=== PATIENT | female | born 1990 | race American Indian/Alaskan Native ===

== ENCOUNTER 2016-06-22 04:26 | Inpatient (IN) | payer SELFPAY ==
[2016-06-22] MEDS ORDERED: LACTATED RINGERS 1,000 ML ONE (04:55)
[2016-06-22] MEDS ORDERED: POLYCILLIN/NS 2 GM/100 ML 2 GM/100 ML BAG IV ONE ×2 (04:55→05:16)
[2016-06-22] MEDS ORDERED: XYLOCAINE 2% INFILTRATI ONE (05:29)
[2016-06-22] MEDS ORDERED: MINERAL OIL PO PRN (05:29)
[2016-06-22] MEDS ORDERED: ZOFRAN IV PRN ×2 (05:29→11:00)
[2016-06-22] MEDS ORDERED: ePHEDrine SULFATE IV PRN (05:29)
[2016-06-22] MEDS ORDERED: BRETHINE IVP PRN (05:29)
[2016-06-22] MEDS ORDERED: BRETHINE SUB-Q PRN (05:29)
--- NOTE | 2016-06-22 05:37 | History and Physical Report ---
History of Present Illness Date of examination: 06/22/16 (ER DROP IN) Date of admission: 06/22/16 04:52 Chief complaint: contractions History of present illness: Pt presents c/o contractions in active labor. Pt has not had any care but gives edc of 07/02/16 via sono done in ER in [place]. She denies any LOF and reports good movement. 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 Family/Genetic History: denies: none Social history: no significant social history, single - Obstetrical History Expected Date of Delivery: 07/02/16 Actual Gestation: 38 Week(s) 4 Day(s) : 2 Para: 1 Number of Living Children: 1 Medications and Allergies Allergies Allergy/AdvReac Type Severity Reaction Status Date / Time No Known Allergies Allergy Verified 06/22/16 04:32 Active Meds: Active Medications Ampicillin Sodium (Polycillin/Ns 2 Gm/100 Ml) 2 gm in 100 mls @ 100 mls/hr IV ONCE ONE Stop: 06/22/16 06:15 Lactated Ringer's (Lactated Ringers) 1,000 mls @ 125 mls/hr IV DIRECT ENMANUEL Oxytocin/Sodium Chloride (Pitocin/Ns 20 Unit/1000ml Drip) 20 units in 1,000 mls @ 125 mls/hr IV DIRECT ENMANUEL Review of Systems All systems: negative - Vital Signs Vital signs: Vital Signs Pulse Pulse Ox 90 98 06/22/16 04:52 06/22/16 04:52 Temp Pulse Resp BP Pulse Ox 96.5 F L 85 18 120/59 96 06/22/16 05:07 06/22/16 05:22 06/22/16 05:07 06/22/16 05:07 06/22/16 05:22 - Physical Exam Abdomen: Positive: normal appearance, soft. Negative: distention, tenderness, guarding Vulva: both: normal Deep Tendon Reflex Grade: Normal +2 - Obstetrical FHR: category 1 Cervical Dilatation: 8.5 Cervical Effacement Percentage: 100 station: -1 Uterine Contraction Pattern: Regular Results All other labs normal. Assessment and Plan - Patient Problems (1) 38 weeks gestation of Current Visit: Yes Status: Acute (2) Active labor at term Current Visit: Yes Status: Acute Plan to address problem: -unknown GBS so antibx being given -anticipate
[2016-06-22] MEDS ORDERED: SUBLIMAZE ONE (05:39)
[2016-06-22] MEDS: SUBLIMAZE IV ONE ×2 (05:44→07:19)
[2016-06-22] MEDS ORDERED: NARCAN 2 MG/2 ML ONE (05:47)
[2016-06-22 05:49] LABS: Urine Drugs of Abuse Note Disclamer
[2016-06-22 05:53] LABS: Hematocrit 36.6 % (30.3-42.9); Mean Corpuscular HGB Conc 33 % (30-34); Mean Corpuscular Hemoglobin 30 pg (28-32); Mean Corpuscular Volume 93 fl (79-97); Platelet Count 257 K/mm3 (140-440); Red Blood Count 3.95 M/mm3 (3.65-5.03); Red Cell Distribution Width 14.9 % (13.2-15.2); White Blood Count 14.4 K/mm3 (4.5-11.0)
[2016-06-22] MEDS ORDERED: PITOCin/NS 20 UNIT/1000ML DRIP 20 UNITS/1,000 ML BAG IV SCH ×2 (06:00)
[2016-06-22] MEDS ORDERED: PITOCin/NS 30 UNIT/500ML 30 UNITS/500 ML BAG IV SCH (06:00)
[2016-06-22] MEDS ORDERED: LACTATED RINGERS 1,000 ML IV SCH ×2 (06:00)
[2016-06-22 06:21] LABS: HIV-1 Antigen p24 Non React (Non React); HIVR-1/2 Ab Non React (Non React)
--- NOTE | 2016-06-22 07:33 | Procedure Note ---
OB Delivery Note - Delivery Date of Delivery: 06/22/16 Surgeon: ANNETTA ANDREWS Estimated blood loss: 200cc - Vaginal Delivery presentation: vertex Delivery position: OA Intrapartum events: other(please specify) (2+mec) Delivery induction: none Delivery augmentation: rupture of membranes Delivery monitor: external FHT, external uterine Route of delivery: Delivery placenta: spontaneous Delivery cord: 3 umbilical vessels Episiotomy: none Delivery laceration: none Delivery comments: Delivery as above without complications. Ant shoulder and rest of delivered without difficulty. Infant was given to waiting nursing staff after cord was clamped x2 and cut x1 by foc. There was not nuchal cord present. Cord blood was collected. Placenta delivered spontaneously intact. There was no lacerations noted at time of delivery. EBL 200ml. Mother and stable in LDR. - Infant A at 1 minute: 8 at 5 minutes: 9 Gender: Female (6lbs 7oz)
[2016-06-22 08:19] LABS: Basophils % (Manual) 0 % (0.0-1.8); Blastocytes % (Manual) 0 %
[2016-06-22 08:21] LABS: Anisocytosis 1+; Diff Status Complete; Platelet Estimate Cons
[2016-06-22 08:22] LABS: Large Platelets Few
[2016-06-22] MEDS ORDERED: DERMOPLAST TP PRN (11:00)
[2016-06-22] MEDS ORDERED: DULCOLAX PR PRN (11:00)
[2016-06-22] MEDS ORDERED: TUCKS PAD TP PRN (11:00)
[2016-06-22] MEDS ORDERED: TYLENOL PO PRN (11:00)
[2016-06-22] MEDS: MOTRIN PO SCH ×2 (11:06→19:25)
[2016-06-22] MEDS: NORCO 5/325 PO PRN ×2 (11:07→20:57)
[2016-06-22] MEDS ORDERED: PHENERGAN PR PRN (11:30)
[2016-06-22] MEDS ORDERED: BENADRYL PO PRN (11:30)
[2016-06-22] MEDS ORDERED: PHENERGAN PO PRN (11:30)
[2016-06-22] MEDS: LANSINOH TP PRN (11:59)
[2016-06-22] MEDS ORDERED: SODIUM CHLORIDE FLUSH SYRINGE 10 ML IV PRN (12:00)
[2016-06-22] MEDS ORDERED: MILK OF MAGNESIA PO PRN (22:00)
[2016-06-22 23:11] LABS: Hematocrit 33.1 % (30.3-42.9); Hemoglobin 10.7 gm/dl (10.1-14.3)
[2016-06-23] MEDS: MOTRIN PO SCH ×3 (00:13→23:50)
[2016-06-23] MEDS ORDERED: BOOSTRIX IM ONE (06:00)
--- NOTE | 2016-06-23 11:46 | Progress Note ---
Assessment and Plan - Patient Problems (1) 38 weeks gestation of Current Visit: No Status: Resolved (2) Active labor at term Current Visit: No Status: Resolved (3) (normal spontaneous vaginal delivery) Current Visit: Yes Status: Acute Plan to address problem: -routine pp care -d/c home in am Subjective - Subjective Date of service: 06/23/16 Principal diagnosis: PPD #1 s/p Interval history: Pt doing well and desires d/c home in the am Patient reports: appetite normal, voiding normally, pain well controlled, no dizzy ambulation : doing well, nursing well Objective - Vital Signs Latest vital signs: Vital Signs Temp Pulse Pulse Resp BP BP 06/23/16 08:39 98.8 F 86 20 98/60 06/23/16 00:25 98 F 62 20 128/69 06/22/16 21:14 98.8 F 59 L 20 120/62 06/22/16 16:47 98.7 F 74 18 102/50 06/22/16 12:40 99 F 62 18 116/61 Intake and Output 06/22/16 06/23/16 06/23/16 22:59 06:59 14:59 Intake Total 360 480 Balance 360 480 Intake: Oral 360 480 Other: Total, Intake Amount 360 480 # Voids Void 1 1 - Exam Lungs: Present: Normal air movement Abdomen: Present: normal appearance, soft, normal bowel sounds. Absent: distention, tenderness, guarding Uterus: Present: normal, firm, fundal height below umbilicus. Absent: bogginess , tenderness Extremities: Present: normal. Absent: tenderness, edema
[2016-06-23] MEDS: LANSINOH TP PRN (19:57)
[2016-06-24] MEDS: MOTRIN PO SCH ×3 (05:47→12:28)
--- NOTE | 2016-06-24 10:41 | Discharge Summary ---
Providers - Providers Date of Admission: 06/22/16 04:52 Date of discharge: 06/24/16 Attending physician: ANNETTA ANDREWS Primary care physician: COURT SUPERVISOR Hospitalization Reason for admission: active labor Delivery: Episiotomy: none Laceration: none Other procedures: none complications: none Discharge diagnosis: IUP at term delivered baby: female Hospital course: Pt s/p vaginal delivery that was not complicated. Pt had routine pp care. D/c home today. Condition at discharge: Good Disposition: DISCHARGED TO HOME OR SELFCARE - Discharge Diagnoses (1) (normal spontaneous vaginal delivery) Status: Acute Plan - Provider Discharge Summary Additional instructions: [] Smoking cessation referral if applicable(refer to patient education folder for contact #) [] Refer to [facility] Booklet Call your doctor immediately for: * Fever > 100.5 * Heavy vaginal bleeding ( >1 pad per hour) * Severe persistent headache * Shortness of breath * Reddened, hot, painful area to leg or breast * Drainage or odor from incision. * Keep incision clean and dry at all times and follow doctor's instructions regarding bathing/showering - Follow up plan Follow up: PRIMARY CARE, [Primary Care Provider] - 6 Weeks Forms: [facility] Discharge Summary
[2016-06-24 11:58] VITALS: BP 122/70
== END 2016-06-24 13:21 | disposition home or self-care (01) | DRG 775 ==
LOC: TRG 04:26 → LD 04:52 → OB 09:41
PROVIDERS: ADMIT Obstetrics & Gynecology; ATTEND Obstetrics & Gynecology
PROC: 10E0XZZ Delivery of Products of Conception, External Approach (ICD-10-PCS; principal; 2016-06-22)
DX: O75.9 Complication of labor and delivery, unspecified (principal); O09.33 Supervision of pregnancy with insufficient antenatal care, third trimester; Z3A.38 38 weeks gestation of pregnancy; Z37.0 Single live birth
CPT/HCPCS: 36415; 80307; 85007; 85014; 85018; 85025; 85660; 86592; 86706; 86762; 86803; 86850; 86900; 86901; 87806; 88307; A6250; J0290; J2310; J2590; J3010; J7120

== ENCOUNTER 2019-03-28 11:00 | Emergency (ER) | payer SELFPAY ==
[2019-03-28 11:13] VITALS: BP 114/56
== END 2019-03-28 11:20 | disposition left against medical advice (07) ==
LOC: ED 11:00
DX: R07.89 Other chest pain (principal); Z53.21 Procedure and treatment not carried out due to patient leaving prior to being seen by health care provider
CPT/HCPCS: 93005; 93010

== ENCOUNTER 2020-07-29 10:51 | Emergency (ER) | payer OTHER ==
--- NOTE | 2020-07-29 12:32 | Event Note ---
ED Screening Note Date of service: 07/29/20 Time: 12:32 ED Screening Note: Patient complains of abdominal pain, back pain, and constipation x2 weeks Patient states she is still passing gas States she believes she had a vaginal prolapse from straining Patient states pain is severe Denies vaginal bleeding or discharge This initial assessment/diagnostic orders/clinical plan/treatment(s) is/are subject to change based on patients health status, clinical progression and re- assessment by fellow clinical providers in the ED. Further treatment and workup at subsequent clinical providers discretion. Patient/guardian urged not to elope from the ED as their condition may be serious if not clinically assessed and managed. Initial orders include: Labs Ultrasound
[2020-07-29 13:16] LABS: Basophils % (Auto) 0.3 % (0.0-1.8); Eosinophils # (Auto) 0.1 K/mm3 (0.0-0.4); Eosinophils % (Auto) 0.5 % (0.0-4.3); Hematocrit 37.5 % (30.3-42.9); Hemoglobin 12.4 gm/dl (10.1-14.3); Lymphocytes # (Auto) 2.6 K/mm3 (1.2-5.4); Mean Corpuscular HGB Conc 33 % (30-34); Mean Corpuscular Volume 96 fl (79-97); Monocytes # (Auto) 0.7 K/mm3 (0.0-0.8); Monocytes % (Auto) 5.2 % (0.0-7.3); Platelet Count 242 K/mm3 (140-440); Red Cell Distribution Width 12.8 % (13.2-15.2)
[2020-07-29 13:37] LABS: Alanine Aminotransferase 9 units/L (7-56); Albumin 3.8 g/dL (3.9-5); Blood Urea Nitrogen 8 mg/dL (7-17); Calcium 8.9 mg/dL (8.4-10.2); Hemolysis Index 17
[2020-07-29 13:41] LABS: BUN/Creatinine Ratio 20
--- NOTE | 2020-07-29 14:23 | Ultrasound Report ---
ULTRASOUND OBSTETRIC LIMITED INDICATION / CLINICAL INFORMATION: Constipation and pain. Clinical Gestational Age (GA) in weeks, days: 16 weeks 5 days TECHNIQUE: Transabdominal. COMPARISON: None available. FINDINGS: Single live intrauterine in transverse head to right position. Amniotic fluid volume is within normal limits. Posterior fundal placenta is free of the os. MEASUREMENTS: - Biparietal Diameter = 3.6 cm = 17 weeks 1 day - Head Circumference = 13.7 cm = 17 weeks 1 day - Abdominal Circumference = 10.2 cm = 16 weeks 1 day - Femur Length = 2.4 cm = 17 weeks 2 days - Estimated Weight (in grams, if calculated): 169 - Heart Rate (beats per minute): 159 IMPRESSION: 1. Single live intrauterine with ultrasound age of 17 weeks 0 days. 2. No significant abnormality identified. Signer Name: Krishna Krishnamurthy MD Signed: 07/29/2020 2:19 PM Workstation Name: [id number]
[2020-07-29 17:29] LABS: Bilirubin,Urine NEG (Negative); Blood,Urine NEG (Negative); Color,Urine Yellow (Yellow); Mucus,Urine 3+ /HPF; Protein,Urine <15 mg/dL mg/dL (Negative); Urobilinogen,Urine < 2.0 mg/dL (<2.0)
--- NOTE | 2020-07-29 17:36 | Emergency Department Report ---
ED General Adult HPI - General Chief complaint: Abdominal Pain Stated complaint: 4 MONTHS SEVER BOWEL/VAGINAL PAIN Time Seen by Provider: 07/29/20 12:30 Source: patient Mode of arrival: Ambulatory Limitations: No Limitations - History of Present Illness Initial comments: Patient is a 29-year-old female presents emergency room with complaints of constipation that began 2 weeks ago. She states that she is currently . She states that she has been taking MiraLAX without much relief. She has not tried any other treatment. She states that she was supposed to have an appointment with her BENCH SCIENTIST today but came here instead. She states that today she was straining to have a bowel movement and feels like something popped out of her vaginal canal and she pushed it back in. She has not seen any bulging since then. She is still able to pass gas. She is able to tolerate p.o. intake. She denies any vomiting. She has not tried any suppositories or enemas. she reports it is causing abdominal discomfort. She denies any back pain, gush of fluids, abnormal vaginal discharge, dysuria, vaginal bleeding, rectal bleeding. She states that her [facility]ENCH SCIENTIST is the [facility]. No past medical history. No allergies to medications. - Related Data Home Medications Medication Instructions Recorded Confirmed Last Taken Vit No.130/Iron/Folic 1 each PO QDAY 06/22/16 06/22/16 Unknown [ Tablet] Previous Rx's Medication Instructions Recorded Last Taken Type Ondansetron [Zofran Odt] 4 mg PO Q8HR #3 tab.rapdis 03/28/18 Unknown Rx Glycerin Adult 2 gm 2 gm MS ONCE PRN #10 supp.rect 07/29/20 Unknown Rx Sodium Phosphate,[place]-Dibasic 133 ml RC ONCE #1 enema 07/29/20 Unknown Rx [Enema Ready To Use] Allergies Allergy/AdvReac Type Severity Reaction Status Date / Time No Known Allergies Allergy Verified 06/22/16 04:32 ED Review of Systems ROS: Stated complaint: 4 MONTHS SEVER BOWEL/VAGINAL PAIN Other details as noted in HPI Comment: All other systems reviewed and negative ED Past Medical Hx - Past Medical History Hx Hypertension: No Hx Congestive Heart Failure: No Hx Diabetes: No Hx Deep Vein Thrombosis: No Hx Renal Disease: No Hx Sickle Cell Disease: No Hx Seizures: No Hx Asthma: Yes (2yrs ago) Hx COPD: No Hx HIV: No - Social History Smoking Status: Current Every Day Smoker Substance Use Type: None - Medications Home Medications: Home Medications Medication Instructions Recorded Confirmed Last Taken Type Vit No.130/Iron/Folic 1 each PO QDAY 06/22/16 06/22/16 Unknown History [ Tablet] Ondansetron [Zofran Odt] 4 mg PO Q8HR #3 tab.rapdis 03/28/18 Unknown Rx Glycerin Adult 2 gm 2 gm MS ONCE PRN #10 supp.rect 07/29/20 Unknown Rx Sodium Phosphate,[place]-Dibasic 133 ml RC ONCE #1 enema 07/29/20 Unknown Rx [Enema Ready To Use] ED Physical Exam - General Limitations: No Limitations General appearance: alert, in no apparent distress - Head Head exam: Present: atraumatic, normocephalic - Eye Eye exam: Present: normal appearance - ENT ENT exam: Present: mucous membranes moist - Respiratory Respiratory exam: Present: normal lung sounds bilaterally. Absent: respiratory distress, wheezes, rales, rhonchi, stridor, chest wall tenderness, accessory muscle use, decreased breath sounds, prolonged expiratory - Cardiovascular Cardiovascular Exam: Present: regular rate, normal rhythm, normal heart sounds. Absent: systolic murmur, diastolic murmur, rubs, gallop - GI/Abdominal GI/Abdominal exam: Present: soft, normal bowel sounds. Absent: distended, tenderness, guarding, rebound, rigid - Speculum exam: Present: other (manager inventory management: Vanessa Kline PA-C, normal vaginal mucosa, no abnormal vaginal discharge, no lesions or blisters, no CMT or adnexal ttp or masses, no signs of bulging or prolapse, no vaginal bleeding, cervical os is closed) - Neurological Exam Neurological exam: Present: alert, oriented X3 - Psychiatric Psychiatric exam: Present: normal affect, normal mood - Skin Skin exam: Present: warm, dry, intact ED Course Vital Signs 07/29/20 07/29/20 12:26 18:23 Temperature 98.6 F Pulse Rate 104 H 84 Respiratory 14 18 Rate Blood Pressure 120/74 Blood Pressure 133/90 [Right] O2 Sat by Pulse 99 99 Oximetry ED Medical Decision Making - Lab Data Result diagrams: 07/29/20 12:48 07/29/20 12:48 Labs 07/29/20 07/29/20 07/29/20 12:48 12:48 12:48 WBC 13.7 H RBC 3.90 Hgb 12.4 Hct 37.5 MCV 96 MCH 32 MCHC 33 RDW 12.8 L Plt Count 242 Lymph % (Auto) 19.0 [place] % (Auto) 5.2 Eos % (Auto) 0.5 Baso % (Auto) 0.3 Lymph # (Auto) 2.6 [place] # (Auto) 0.7 Eos # (Auto) 0.1 Baso # (Auto) 0.0 Seg Neutrophils % 75.0 H Seg Neutrophils # 10.3 H Sodium 135 L Potassium 4.2 Chloride 100.9 Carbon Dioxide 22 Anion Gap 16 BUN 8 Creatinine 0.4 L Estimated GFR > 60 BUN/Creatinine Ratio 20 Glucose 81 Calcium 8.9 Total Bilirubin 0.30 AST 14 ALT 9 Alkaline Phosphatase 47 Total Protein 6.9 Albumin 3.8 L Albumin/Globulin Ratio 1.2 HCG, Quant 56578 H Urine Color Urine Turbidity Urine pH Ur Specific Squires Urine Protein Urine Glucose (UA) Urine Ketones Urine Blood Urine Nitrite Urine Bilirubin Urine Urobilinogen Ur Leukocyte Esterase Urine WBC (Auto) Urine RBC (Auto) U Epithel Cells (Auto) Urine Mucus 07/29/20 15:02 WBC RBC Hgb Hct MCV MCH MCHC RDW Plt Count Lymph % (Auto) [place] % (Auto) Eos % (Auto) Baso % (Auto) Lymph # (Auto) [place] # (Auto) Eos # (Auto) Baso # (Auto) Seg Neutrophils % Seg Neutrophils # Sodium Potassium Chloride Carbon Dioxide Anion Gap BUN Creatinine Estimated GFR BUN/Creatinine Ratio Glucose Calcium Total Bilirubin AST ALT Alkaline Phosphatase Total Protein Albumin Albumin/Globulin Ratio HCG, Quant Urine Color Yellow Urine Turbidity Clear Urine pH 5.0 Ur Specific [place] 1.025 Urine Protein <15 mg/dl Urine Glucose (UA) Neg Urine Ketones 80 Urine Blood Neg Urine Nitrite Neg Urine Bilirubin Neg Urine Urobilinogen < 2.0 Ur Leukocyte Esterase Neg Urine WBC (Auto) 1.0 Urine RBC (Auto) 3.0 U Epithel Cells (Auto) 2.0 Urine Mucus 3+ Vital Signs 07/29/20 07/29/20 12:26 18:23 Temperature 98.6 F Pulse Rate 104 H 84 Respiratory 14 18 Rate Blood Pressure 120/74 Blood Pressure 133/90 [Right] O2 Sat by Pulse 99 99 Oximetry - Medical Decision Making Patient is a 29-year-old female presents emergency room with complaints of constipation that began 2 weeks ago. She states that she is currently . She states that she has been taking MiraLAX without much relief. She has not tried any other treatment. She states that she was supposed to have an appointment with her BENCH SCIENTIST today but came here instead. She states that today she was straining to have a bowel movement and feels like something popped out of her vaginal canal and she pushed it back in. She has not seen any bulging since then. She is still able to pass gas. She is able to tolerate p.o. intake. She denies any vomiting. She has not tried any suppositories or enemas. she reports it is causing abdominal discomfort. She denies any back pain, gush of fluids, abnormal vaginal discharge, dysuria, vaginal bleeding, rectal bleeding. She states that her BENCH SCIENTIST is the [facility]. No past medical history. No allergies to medications. vss. No abdominal te nderness on exam, no guarding, no rebound no rigidity, normal bowel sounds, no peritoneal signs, pelvic examination with manager inventory management shows no evidence of prolapse and cervical os appears closed without any evidence of vaginal bleeding. Patient is not having any obstructive signs at this time, no vomi ting, she is able to tolerate p.o. intake. Patient will be given suppositories and enema to use at home. Discussed very strict return precautions in detail with patient. Discussed the importance of BENCH SCIENTIST follow-up. Advised patient Please use a suppository and if no relief within 1 hour then use an enema. Eat a high-fiber diet. Increase your water intake over the next several days. Follow-up with your BENCH SCIENTIST. Follow-up with your primary care doctor. Return to emergency room immediately for any new or worsening symptoms including but not limited to worsening abdominal pain, vaginal bleeding, rectal bleeding, unable to pass gas, constant vomiting, unable to tolerate by mouth intake, no relief after using suppositories and enemas at home, etc. Critical care attestation.: If time is entered above; I have spent that time in minutes in the direct care of this critically ill patient, excluding procedure time. ED Disposition Clinical Impression: Constipation Qualifiers: Constipation type: unspecified constipation type Qualified Code(s): K59.00 - Constipation, unspecified Abdominal pain Qualifiers: Abdominal location: generalized Qualified Code(s): R10.84 - Generalized abdominal pain Qualifiers: Weeks of gestation: 17 weeks Qualified Code(s): Z3A.17 - 17 weeks gestation of Disposition: DC-01 TO HOME OR SELFCARE Is pt being admited?: No Does the pt Need Aspirin: No Condition: Stable Instructions: High-Fiber Diet, Constipation, Adult, Abdominal Pain (ED) Additional Instructions: Please use a suppository and if no relief within 1 hour then use an enema. Eat a high-fiber diet. Increase your water intake over the next several days. Follow-up with your BENCH SCIENTIST. Follow-up with your primary care doctor. Return to emergency room immediately for any new or worsening symptoms including but not limited to worsening abdominal pain, vaginal bleeding, rectal bleeding, unable to pass gas, constant vomiting, unable to tolerate by mouth intake, no relief after using suppositories and enemas at home, etc. Prescriptions: Sodium Phosphate,[place]-Dibasic [Enema Ready To Use] 133 ml RC ONCE #1 enema Glycerin Adult 2 gm 2 gm MS ONCE PRN #10 supp.rect PRN Reason: constipation Referrals: PRIMARY CARE, [Primary Care Provider] - 2-3 Days [facility] [Provider Group] - 2-3 Days
[2020-07-29 18:24] VITALS: BP 133/90
== END 2020-07-29 18:26 | disposition home or self-care (01) ==
LOC: ED 10:51
DX: O99.612 Diseases of the digestive system complicating pregnancy, second trimester (principal); K59.00 Constipation, unspecified; J45.909 Unspecified asthma, uncomplicated; F17.200 Nicotine dependence, unspecified, uncomplicated; Z3A.16 16 weeks gestation of pregnancy; Z79.899 Other long term (current) drug therapy
CPT/HCPCS: 36415; 76805; 80053; 81001; 84702; 85025